=== PATIENT | male | born 1980 | race African-American/Black ===

== ENCOUNTER 2021-07-04 19:56 | Emergency (ER) | payer OTHER, SELFPAY ==
--- NOTE | ~2021-07-04 | XR_ITS ---
EXAMINATION: XR CHEST CLINICAL INFORMATION: Fall, pain on right side. COMPARISON: None TECHNIQUE: 2 views of the chest were obtained. FINDINGS: The cardiomediastinal and hilar contours are within normal limits. The lungs are clear without focal consolidation, pleural effusion or pneumothorax. No displaced rib fractures identified. XR/XR chest 2V IMPRESSION: No acute process identified. No displaced rib fractures seen.
[2021-07-04 20:30] VITALS: BP 130/58; PULSE 74; RESP 18; TEMP 37.1; O2SAT 99; BMI 23.2
[2021-07-04] MEDS: Lidocaine 4 % Patch ADH..PATCH 1 PATCH TRANSDERMA (21:39)
[2021-07-04] MEDS: Ketorolac Tromethamine 30 MG/ML VIAL 15 MG IM (21:40)
--- NOTE | 2021-07-04 21:49 | ED_ITS ---
HPI - General Adult General Chief complaint: General Medical Stated complaint: Flank pain from fall Time Seen by Provider: 07/04/21 21:19 Source: patient Mode of arrival: ambulatory History of Present Illness HPI narrative: 40-year-old male states he was roller-skating today at approximately 3:15 p.m. and fell catching himself primarily on is right arm but struck the right side of his body and felt as though his ?rib cage moved and thought he felt a pop?. Patient reports that it hurts to take a deep breath or to moved too much. Related Data Allergies Allergy/AdvReac Type Severity Reaction Status Date / Time No Known Allergies Allergy Verified 07/04/21 20:29 Review of Systems Review of Systems: Pertinent positives and negatives as stated in HPI 10 point of systems is otherwise negative. [facility] Past Medical History Source: nursing notes reviewed Social History Social History Advance Directives: No Physical Exam Vital Signs: Vital Signs: Last Vital Signs Temp 98.7 F 07/04/21 20:30 Pulse 74 07/04/21 20:30 Resp 18 07/04/21 20:30 BP 130/58 L 07/04/21 20:30 Pulse Ox 99 07/04/21 20:30 BMI result Body Mass Index 23.2 VITAL SIGNS: Reviewed. GENERAL: Well developed, well nourished, in no acute distress. HEAD: Normocephalic/atraumatic EYES: PERRLA, EOMI OROPHARYNX: no oral lesions noted, posterior pharynx clear LUNGS: Normal breath sounds. No adventitious sounds or accessory muscle use. SpO2-99, point tenderness at the right anterior chest wall at approximately ribs 11, no deformity or crepitus noted CARDIOVASCULAR: Regular rate and rhythm without noted murmurs ABDOMEN: Soft, non-tender, non-distended with bowel sounds. MUSCULOSKELETAL: No tenderness, deformities, or effusions noted on gross inspection. EXTREMITIES: No cyanosis, clubbing or edema. SKIN: Inspection of the skin reveals no rashes NEUROLOGIC: Alert and oriented x 4. Course Course Course Narrative: 40-year-old male with history and clinical presentation consistent with nondisplaced fracture or contusion and you of x-rays there are no acute findings, however patient was counseled that x-ray does miss some fra ctures but the treatment is symptomatic with combination analgesics and lidocaine patch. Patient with combination analgesics as well as lidocaine patch in otherwise discharged home in stable condition with oxygenating well on room air. Discharge Plan Discharge Clinical Impression: Chest wall pain, Contusion of chest wall Patient Disposition: Home, Self-Care Instructions: Chest Wall Pain (ED), Contusion in Adults (ED) Additional Instructions: Tylenol 1000 mg, orally, every 6 hours as needed for pain control. Do not exceed 4000 mg within 24 hours. Ibuprofen 400 male, orally with milk or food, every 6 hours as needed for pain control. You may this medication with Tylenol for increased symptom relief. Lidocaine patch, these are available [id number] and should be apply to area of maximal pain as directed on the outside packaging. Follow-up with your primary care provider in the next 1-2 days for re-evaluation further outpatient management. Return to the ER for worsening symptoms. Referrals: Florence Cohen MD [Primary Care Provider] - 2 days Stand Alone Forms: Work/School Release
== END 2021-07-04 22:25 | disposition home or self-care (01) ==
PROVIDERS: Emergency Provider Student in an Organized Health Care Education/Training Program; PCP Internal Medicine
DX: R07.89 Other chest pain (principal); S20.211A Contusion of right front wall of thorax, initial encounter; W22.09XA Striking against other stationary object, initial encounter; Y93.51 Activity, roller skating (inline) and skateboarding; Y92.9 Unspecified place or not applicable; Y99.9 Unspecified external cause status
CPT/HCPCS: 71046; 96372; 99284; J1885

== ENCOUNTER 2023-01-12 19:57 | Emergency (ER) | payer OTHER, SELFPAY ==
--- NOTE | 2023-01-12 20:10 | ED.ALLEREA ---
HPI - Allergic Reaction General Chief complaint: Allergic Reaction Stated complaint: stung on lower lip by a hornet Time Seen by Provider: 01/12/23 20:19 Source: patient Mode of arrival: ambulatory Limitations: no limitations History of Present Illness HPI narrative: 42 yo male presents to the ER with lower lip swelling after being stung my a wasp/hornet a half ago in his backyard. He reports no prior history of allergic rxns. he states that he was stung by a wasp 20 years ago without an allergic rxn. He denies difficulty swallowing, swelling of the tongue, or difficulty breathing. Reports pain as sharp, stabbing, and throbbing on the right side of the lip. MD complaint: allergic reaction and facial swelling Onset (ago): minute(s) (30 mins ago) Exposure: other (stung by wasp/hornet ) Symptoms: lip swelling Severity: moderate Treatment prior to arrival: none Previous Allergic Reaction History: none Related Data Previous Rx's Medication Instructions Recorded diphenhydramine HCl 25 mg capsule 50 mg PO TID PRN allergy symptoms 01/12/23 (Benadryl) #20 caps Allergies Allergy/AdvReac Type Severity Reaction Status Date / Time No Known Allergies Allergy Verified 01/12/23 20:17 Review of Systems Review of Systems: Yes all other systems are reviewed and are negative [facility] Social History Social History Advance Directives: No Advance Directives Information Provided: Yes Physical Exam ED Vital Signs: Vital Signs - 24 hr 01/12/23 20:13 Temperature 98.2 F Pulse Rate 65 Respiratory Rate 18 Blood Pressure 120/62 Pulse Oximetry 98 Oxygen Delivery Method Room Air BMI result Body Mass Index 24.4 Appearance: Alert. Oriented X3. No acute distress. Head: normocephalic, atraumatic. Eyes: Pupils equal, round and reactive to light. ENT: Pharynx normal. No tonsillar swelling or exudate. Left lower lip swelling and erythema. airway patent. no tongue swelling. Neck: Normal inspection. Neck supple. no neck swelling CVS: Normal heart rate and rhythm. Pulses normal. Clear to auscultation bilaterally Respiratory: No respiratory distress. Breath sounds normal. Abdomen: Soft and nontender. +BS x4 Skin: Skin warm and dry. Normal skin color. Normal skin turgor. No rashes. Extremities: No lower extremity edema. No joint swelling. Neuro/psych: Oriented X 3. No motor deficit. No sensory deficit. CN II-XII intact. Normal speech and cognition. Course Course Course Narrative: RME: 42-year-old male with no significant past medical history presenting to the ED complaining of hornet/bee sting to lower lip 20 mins [employer]. denies known allergens, SOB, sore throat, cough, or throat closing sensation +lower lip diffusely swollen, uvula midline, no resp distress IM Solumedrol, PO Benadryl and PO Pepcid ordered Full HPI, ROS and PE to be performed by primary ED provider. Reevaluation(s) Reevaluation #1: symptoms improved after meds. comfortable d/c home with continuation of benadryl until resolution Time: 21:45 Medications Administered Discontinued Medications Generic Name Dose Route Start Last Admin Trade Name Freq PRN Reason Stop Dose Admin Diphenhydramine HCl 50 mg 01/12/23 20:15 01/12/23 20:23 Diphenhydramine Hcl 25 Mg Capsule PO 01/12/23 20:16 50 mg ONCE ONE Administration Famotidine 20 mg 01/12/23 20:15 01/12/23 20:23 Famotidine 20 Mg Tablet PO 01/12/23 20:16 20 mg ONCE ONE Administration Methylprednisolone Sodium Succinate 60 mg 01/12/23 20:15 01/12/23 20:23 Methylprednisolone Sod Succ 125 Mg/2 Ml Vial IM 01/12/23 20:16 60 mg ONCE ONE Administration Medical Decision Making Medical Decision Making MDM Narrative: 42 yo male presents to the ER with lip swelling after being stung my a wasp/hornet a half ago in his backyard. No history of previous allergic rxns. Physical exam demonstrated left lower lip swelling. He was able to swallow his pills without difficulty. Prescribed famotidine, benadryl, and methyloprednisolone for inflammation and to reduce allergic rxn. Patient reports symptom improvement and decreased lip swelling. no airway involvement. reaction was localized to the sting site. stable for d/c home, return precautions were discussed. Differential Diagnosis Differential Diagnoses: The differential diagnosis associated with the presentation includes allergic reaction, angioedema, lip trauma Admission/Observation Consideration of admission/observation: Escalation of care including admission/observation considered considered observation given lip involvement Independent Historian Clinical information obtained from an independent historian. History obtained from or confirmed by: Spouse Prescription Management I considered prescription management with: Other (benadryl) Critical Care Time Critical Care Time Critical Care Time: Yes Total Critical Care Time: 35 Attestation: I have personally provided critical care time exclusive of time spent on separately billable procedures. Time includes review of records, frequent bedside evaluation of airway, cardiopulmonary status, and monitoring for potential decompensation. Intervention performed as documented. Discharge Plan Discharge Clinical Impression: Bee sting reaction Patient Disposition: Home, Self-Care Instructions: Insect Bite or Sting (ED) Additional Instructions: continue benadryl until your lip feels back to normal If you develop new or worsening symptoms call 911 or come back to the ER for further evaluation. Prescriptions: New diphenhydramine HCl [Benadryl] 25 mg capsule 50 mg PO TID PRN (Reason: allergy symptoms) Qty: 20 0RF
[2023-01-12 20:13] VITALS: BP 120/62; PULSE 65; RESP 18; TEMP 36.8; O2SAT 98; BMI 24.4
[2023-01-12] MEDS: methylPREDNISolone Sod Succ 125 MG/2 ML VIAL 60 MG IM (20:23)
[2023-01-12] MEDS: Famotidine 20 MG TABLET PO (20:23)
[2023-01-12] MEDS: diphenhydrAMINE HCL 25 MG CAPSULE 50 MG PO (20:23)
== END 2023-01-12 21:53 | disposition home or self-care (01) ==
PROVIDERS: Emergency Provider Emergency Medicine
DX: T63.441A Toxic effect of venom of bees, accidental (unintentional), initial encounter (principal); R22.0 Localized swelling, mass and lump, head; Y92.017 Garden or yard in single-family (private) house as the place of occurrence of the external cause
CPT/HCPCS: 96372; 99282; 99284; J2930

== ENCOUNTER 2025-04-25 08:32 | Outpatient (AMB) | payer OTHER, SELFPAY ==
--- NOTE | 2025-04-25 08:36 | A.OFFPC_ITS ---
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 Appointment Clerk Required: No Accompanied by: Self / Same As Patient Allergies No Known Allergies Allergy (Verified 04/25/25 08:37) Tobacco use date assessed: 04/25/25 Dental Screening Dental Screen Date: 04/25/25 Did you have a dental visit in the last 12 months?: Yes Did you have a dental problem in the last 6 months where you did not have access to dental care?: No Was dental information given to patient?: Patient has dentist HPI HPI Comments History of Present Illness Details History of Present Illness The patient is a 44-year-old male presenting for a primary care visit to establish care and discuss ADHD-related concerns. Attention-Deficit/Hyperactivity Disorder (ADHD): - The patient has been seeing a psycholo gist at [facility] for approximately one month for ADHD-related therapy. - The psychologist has requested a sign- off from a primary care physician to proceed with further evaluation of brain function. Preventative Care: - The patient is undergoing a comprehens thuan metabolic panel, complete blood count, and other screenings as part of establishing care. - No physical medical concerns were repo rted by the patient during the visit. Review of Systems - General: Denies fatigue, weight loss, or fever. - Respiratory: Denies cough, dyspnea, or wheezing. - Cardiovascular: Denies chest pain or p alpitations. - Neurological: Denies headaches, dizzin ess, or balance issues. - Psychiatric: Reports ADHD-related conc erns. 10-point ROS reviewed and negative excep t as noted in HPI Past Medical History - No significant past medical history re ported. Health Maintenance - Comprehensive metabolic panel, complet e blood count, and other screenings planned as part of establishing care. Physical Exam General: Well-appearing, in no acute distress. Vital signs: Within normal limits. HEENT: Normocephalic, atraumatic. PERRLA, EOMI. Conjunctiva clear, sclera anicteric. Oropharynx clear, mucous membranes moist. TMs intact bilaterally. Ears checked and appear normal. Neck: Supple, no lymphadenopathy, no thyromegaly, no JVD or carotid bruits. Thyroid checked and appears normal. Cardiovascular: RRR, normal S1/S2, no murmurs, rubs, or gallops. Peripheral pulses 2+ and symmetric. No edema. Respiratory: Lungs clear to auscultation bilaterally, no wheezes, rales, or rhonchi. Normal effort. Deep breath taken and normal. Abdomen: Soft, non-tender, non-distended. Normoactive bowel sounds. No hepatosplenomegaly, no masses. MSK: Full range of motion, no joint swelling or deformity. Normal gait. Skin: Warm, dry, intact. No rashes, lesions, or pallor. Noted hair loss. Neuro: Alert and oriented x3. Cranial nerves II-XII intact. Strength 5/5 throughout. Sensation intact. Reflexes 2+ symmetric. Normal coordination and gait. Psych: Appropriate mood and affect. Normal judgment and insight. Plan 1. Attention-Deficit/Hyperactivity Disor raymond (Adhd) - The patient is advised to obtain docum entation from the psychologist detailing the specific requirements for the sign-off. - Follow-up visit scheduled to review la b results and provide necessary documentation for ADHD evaluation. 2. Preventative Care - Comprehensive metabolic panel, complet e blood count, and other screenings to be conducted. - Follow-up visit planned to discuss res ults and further management. Discussion Notes During the visit, I discussed with the patient the need for a comprehensive metabolic panel and other screenings as part of establishing care. I advised the patient to obtain specific documentation from the psychologist regarding the ADHD evaluation requirements. A follow-up visit was scheduled to review lab resu lts and provide the necessary documentation for the ADHD evaluation. Patient was informed and verbally consented to the use of an ambient scribe for clinic note documentation during this visit. Patient Instructions - Obtain documentation from the psycholo gist detailing the specific requirements for the sign-off. - Return for a follow-up visit to review lab results and discuss further management. [facility] Family History (Updated 04/25/25 @ 08:41 by Linda Boston MA) Father No problems noted. Mother No problems noted. Social History Housing: House Alcohol intake: current Alcohol intake frequency: does not drink Patient Tobacco Use Status: Never used Tobacco service: No Current occupational status: employed Cognitive needs: No Hearing needs: No Vision needs: Yes (rx glasses) Questionnaire PHQ-9 Over the last 2 weeks, how often have you been bothered by any of the following problems? 1. Little interest or pleasure in doing things: not at all 2. Feeling down, depressed, or hopeless: not at all 3. Trouble falling or staying asleep, or sleeping too much: not at all 4. Feeling tired or having little energy: not at all 5. Poor appetite or overeating: not at all 6. Feeling bad about yourself - or that you are a failure or have let yourself or your family down: not at all 7. Trouble concentrating on things, such as reading the newspaper or watching television: not at all 8. Moving or speaking so slowly that other people could have noticed. Or the opposite - being so fidgety or restless that you have been moving around a lot more than usual: not at all 9. Thoughts that you would be better off or of hurting yourself in some way: not at all Total score: 0 Source: Developed by Drs. Micah Cardozo, Maryjane Valencia, Erich Hernandez and colleagues, with an educational faith from [employer]. Thrive Questionnaire Date Thrive assessed: 04/22/25 I am a: Patient What is your living situation today?: I have a steady place to live Within the past 12 months, did the food you bought not last and you didn't have the money to get more?: Never true Within the past 12 months, did you worry whether your food would run out before you got money to buy more?: Never true Do you have trouble paying for medicines?: No Do you have trouble getting transportation to medical appointments?: No Do you have trouble paying your heating and electricity bill?: No Do you have trouble taking care of your child, family member or friend?: No Do you have trouble with day-to-day activities such as bathing, preparing meals, shopping, managing finances, etc.?: No Are you currently unemployed and looking for a job?: No Are you interested in more education?: No Please select the resources that you would like help with: None Currently or been in a relationship where the following occur: No concerns reported THRIVE Score: 0 AUDIT C Alcohol Use Questionnaire (AUDIT-C) 1. How often do you have a drink containing alcohol?: Never Total Score: 0 ASHLEY-7 AMB Questionnaire ASHLEY-7 Feeling nervous, anxious, or on edge: 0 = Not at all Not being able to stop or control worryin = Not at all Worrying too much about different things: 0 = Not at all Trouble relaxin = Not at all Being so restless that it is hard to sit still: 0 = Not at all Becoming easily annoyed or irritable: 0 = Not at all Feeling afraid as if something awful might happen: 0 = Not at all Total ASHLEY-7 score (0-4 normal; 5-9 mild; 10-14 moderate; 15-21 severe): 0 Source: Developed by Drs. Micah Cardozo, Maryjane Valencia, Erich Hernandez and colleagues, with an educational faith from [employer]. Physical exam (Primary Care) Thrive Assessment: Date of Thrive Assessment Date Thrive assessed 04/22/25 04/22/25 14:39 Currently or been in a relationship where the following occur: No concerns reported Coding Level of Care Code New Pt Level 3 (66319) Diagnoses Encounter to establish care Z76.89 Encounter for screening, unspecified Z13.9 Screening for diabetes mellitus Z13.1 Screening for hypertension Z13.6 Screening for depression Z13.31 Screening for lipoid disorders Z13.220 Routine screening for STI (sexually transmitted infection) Z11.3 Screening for HIV (human immunodeficiency virus) Z11.4 Counseling, unspecified Z71.9 Assessment & Plan Assessment & Plan (1) Encounter to establish care: Code(s): Z76.89 - Persons encountering health services in other specified circumstances (2) Encounter for screening, unspecified: Code(s): Z13.9 - Encounter for screening, unspecified (3) Screening for diabetes mellitus: Code(s): Z13.1 - Encounter for screening for diabetes mellitus (4) Screening for hypertension: Code(s): Z13.6 - Encounter for screening for cardiovascular disorders (5) Screening for depression: Code(s): Z13.31 - Encounter for screening for depression (6) Screening for lipoid disorders: Code(s): Z13.220 - Encounter for screening for lipoid disorders (7) Routine screening for STI (sexually transmitted infection): Code(s): Z11.3 - Encounter for screening for infections with a predominantly sexual mode of transmission (8) Screening for HIV (human immunodeficiency virus): Code(s): Z11.4 - Encounter for screening for human immunodeficiency virus [HIV] (9) Counseling, unspecified: Code(s): Z71.9 - Counseling, unspecified Plan Orders: Orders Hemoglobin A1c Today Z13.9 - Encounter for screening, unspecified, Z76.89 - Persons encountering health services in other specified circumstances Hepatitis B Surface Antigen Today Z13.9 - Encounter for screening, unspecified, Z76.89 - Persons encountering health services in other specified circumstances Magnesium Today Z13.9 - Encounter for screening, unspecified, Z76.89 - Persons encountering health services in other specified circumstances Chlamydia Species Ab Panel Today Z13.9 - Encounter for screening, unspecified, Z76.89 - Persons encountering health services in other specified circumstances CT NG by PCR Urine Today Z13.9 - Encounter for screening, unspecified, Z76.89 - Persons encountering health services in other specified circumstances Vitamin D 1,25 dihydroxy Today Z13.9 - Encounter for screening, unspecified, Z76.89 - Persons encountering health services in other specified circumstances Complete Blood Count Auto Diff Today Z13.9 - Encounter for screening, unspecified, Z76.89 - Persons encountering health services in other specified circumstances Comprehensive Met. Panel Today Z13.9 - Encounter for screening, unspecified, Z76.89 - Persons encountering health services in other specified circumstances Hepatitis B Surface Antibody Today Z13.9 - Encounter for screening, unspecified, Z76.89 - Persons encountering health services in other specified circumstances Hepatitis C Antibody Today Z13.9 - Encounter for screening, unspecified, Z76.89 - Persons encountering health services in other specified circumstances HIV Ab/Ag Today Z13.9 - Encounter for screening, unspecified, Z76.89 - Persons encountering health services in other specified circumstances Lipid Panel Today Z13.9 - Encounter for screening, unspecified, Z76.89 - Persons encountering health services in other specified circumstances Syphilis Screen Today Z13.9 - Encounter for screening, unspecified, Z76.89 - Persons encountering health services in other specified circumstances UA CC w/rflx Micro + Cult Today Z13.9 - Encounter for screening, unspecified, Z76.89 - Persons encountering health services in other specified circumstances Vitamin B12 and Folate Today Z13.9 - Encounter for screening, unspecified, Z76.89 - Persons encountering health services in other specified circumstances
[2025-04-25 08:42] VITALS: BP 118/62; PULSE 62; RESP 16; TEMP 36.6; O2SAT 100; BMI 24.1
--- OUTSIDE RECORDS SUMMARY | 2025-04-25 08:49 | XMS_ITS ---
Author Name [facility] Organization Unknown Care Team Organization Name Specialty Phone Email Start Date End [facility] te [facility] [employer] ([facility]) 12/10/2024
--- OUTSIDE RECORDS SUMMARY | 2025-04-25 08:49 | XMS_ITS | Clinical Summary ---
Author Organization [facility] Address [address] [place] [address] Care Team Providers Care Contact Officer Name Role Phone Kailyn Nowak MD Primary Care Provider [phone] Medications Cyclobenzaprine HCl (FLEXERIL) 10 MG tablet TAKE 1/2 TO 1 TABLET 3 TIMES DAILY NEEDED. 15 0 07/06/2019 Active Ibuprofen (ADVIL,MOTRIN) 600 MG tablet TAKE 1 TABLET 3 TIMES DAILY WITH FOOD NEEDED. 42 0 07/06/2019 Active Active Problems Problem Noted Date Diagnosed Date Trapezius muscle spasm 07/06/2019 Overview (08/28/2023): Impression - [id number]: Pt counselled at length on condition. Rec freq warm compresses, massage and gentle stretching. Begin ibuprofen 600mg tid with food and cyclobenzaprine up to tid (as shadia with sedation). F/u with any worsening if not improved in 1 week or if not resolved in 2 weeks. I discussed that he may benefit for PT if not imrproving soon given his degree of discomfort. Advised he may need someone to drive him home as he is having difficulty turning his neck. Social History Tobacco Use Types Packs/Day Years Used Date Smoking Tobacco: Never Assessed Sex and Gender Information Value Date Recorded Sex Assigned at Not on file Legal Sex Male 6:18 PM EDT Gender Identity Not on file Sexual Orientation Not on file Last Filed Vital Signs Vital Sign Reading Time Taken Comments Blood Pressure 115/70 07/06/2019 9:32 AM EST Pulse 61 07/06/2019 9:32 AM EST Temperature 36.6 C (97.9 F) 07/06/2019 9:32 AM EST Respiratory Rate 61 07/06/2019 9:32 AM EST Oxygen Saturation 100% 07/06/2019 9:32 AM EST Inhaled Oxygen Concentration - - Weight 72.6 kg (159 lb 15.8 oz) 07/06/2019 9:32 AM EST Height 177.8 cm (5' 10 ) 07/06/2019 9:32 AM EST Body Mass Index 22.96 07/06/2019 9:32 AM EST Plan of Treatment Health Maintenance Due Date Last Done Comments Hepatitis C Screening 1982 DTaP/Tdap/Td (1 - Tdap) 2000 Hep B (1 of 3 - 19+ 3-dose series) 2001 COVID-19 Vaccine ( - 2023-2 5 season) 2025 Influenza (#1) 2025 Zoster (Shingrix) (1 of 2) 2032 HPV Vaccine (No Doses Required) Completed Hep A Aged Out No longer eligi ble based on patient's age to complete this topic Hib Aged Out No longer eligi ble based on patient's age to complete this topic Meningococcal ACWY Aged Out No longer eligible based on patient's age to complete this topic Pneumococcal Aged Out No longer eligi ble based on patient's age to complete this topic Care Teams Contact Officer Relationship Specialty Start Date End Date Kailyn Nowak MD [address] [place] [address] PCP - General 02/28/23
== END 2025-04-25 09:01 | disposition home or self-care (01) ==
PROVIDERS: Family Provider Student in an Organized Health Care Education/Training Program; Visit Provider Student in an Organized Health Care Education/Training Program
DX: F90.9 Attention-deficit hyperactivity disorder, unspecified type (principal)

== ENCOUNTER 2025-04-25 08:32 | Outpatient (REF) | payer BC, SELFPAY ==
[2025-04-25 13:34] LABS: MANUAL DIFF FLAG NO
[2025-04-25 13:39] LABS: Hematocrit 41.6 % (42.0-52.0); Hemoglobin 13.9 g/dl (14.0-18.0); Imm Gran Abs Auto 0.01 X10*3/uL (0.00-0.03); Imm Gran Pct Auto 0.2 % (0.0-0.4); Lymphocytes Absolute Auto 1.5 X10*3/uL (1.2-4.9); Mean Corpuscular HGB Conc 33.4 g/dl (31.0-36.0); Mean Corpuscular Hemoglobin 27.9 pg (27.0-33.0); Mean Corpuscular Volume 83.5 fL (80.0-98.0); NRBC Abs Auto 0.000 X10*3/uL (0.0-0.012); NRBC Pct Auto 0.0 /100WBC (0.0-0.2); Platelet Count 263 X10*3/uL (160-400); Red Blood Count 4.98 X10*6/uL (4.60-5.80); White Blood Count 4.1 X10*3/uL (4.8-10.8)
[2025-04-25 13:53] LABS: Alanine Aminotransferase 23 U/L (0-40); Albumin Level 4.6 g/dL (3.5-5.0); Alkaline Phosphatase 96 U/L (39-117); Anion Gap 9 (12-20); Aspartate Amino Transferase 39 U/L (5-37); Blood Urea Nitrogen 11 mg/dL (9-16); Calcium 9.5 mg/dL (8.4-10.2); Carbon Dioxide 27 mmol/L (22-29); Chloride 108 mmol/L (96-108); Cholesterol 207 mg/dL (<200); Estimated Glomerular Filt Rate > 60; HDL Cholesterol 62 mg/dL (>40); Magnesium 2.2 mg/dL (1.6-2.6); Potassium 3.9 mmol/L (3.3-5.1); Sodium 140 mmol/L (135-145); Total Protein 7.7 g/dL (6.5-8.0); Triglycerides 45 mg/dL (<150)
[2025-04-25 14:22] LABS: Folate 6.8 ng/mL (> or = 4.0); Vitamin B12 387 pg/mL (200-900)
[2025-04-25 14:37] LABS: Appearance Urine Clear; Glucose Urine UA Negative (Negative); PH 6.0 (5.0-9.0); Specific Gravity - Urine 1.025 (1.005-1.025); UMIC TRIGGER UACC YES
[2025-04-25 15:58] LABS: CT PCR Urine NOT DETECTED (Not Detect.); NG PCR Urine NOT DETECTED (Not Detect.)
[2025-04-26 05:27] LABS: HBS Num1 21.52 mIU/mL (0-7.99); HBsAGNum1 0.49 S/CO (0.00-0.99); HIV Num 1 0.05 S/CO (0.00-0.99); Hepatitis B Surface Antigen Negative (Negative); ~HepC Num1 0.09 S/CO (0.00-0.79); ~Hepatitis B Surface Antibody REACTIVE (Nonreactive); ~Hepatitis C Antibody Nonreactive (Nonreactive)
[2025-04-26 05:39] LABS: Syphilis Screen Nonreactive (Nonreactive)
[2025-04-30 17:32] LABS: VITAMIN D (1,25 OH) D3 55 pg/mL; Vit D (1,25-Dihydroxy) Total 55 pg/mL (18-72); Vitamin D (1,25 OH) D2 <8 pg/mL
[2025-05-01 11:19] LABS: Chlamydia Pneumoniae Interp. Past Infection; Chlamydia Trachomatis IgA <1:16 titer (<1:16)
== END 2025-04-25 08:33 | disposition home or self-care (01) ==
LOC: HO.HKASLDS 08:32
PROVIDERS: Visit Provider Student in an Organized Health Care Education/Training Program
DX: Z76.89 Persons encountering health services in other specified circumstances (principal); Z13.9 Encounter for screening, unspecified; Z13.1 Encounter for screening for diabetes mellitus; Z13.6 Encounter for screening for cardiovascular disorders; Z13.31 Encounter for screening for depression; Z13.220 Encounter for screening for lipoid disorders; Z11.4 Encounter for screening for human immunodeficiency virus [HIV]; Z71.9 Counseling, unspecified; Z20.2 Contact with and (suspected) exposure to infections with a predominantly sexual mode of transmission
CPT/HCPCS: 80053; 80061; 81001; 81003; 82607; 82652; 82746; 83036; 83735; 85025; 86631; 86632; 86706; 86780; 86803; 87340; 87389; 87491; 87591; 96127

== ENCOUNTER 2025-05-08 08:40 | Outpatient (AMB) | payer OTHER, SELFPAY ==
[2025-05-08 08:44] VITALS: BP 118/54; PULSE 63; RESP 16; TEMP 36.5; O2SAT 100; BMI 23.7
--- NOTE | 2025-05-08 08:44 | MHC.PC.OV ---
Vital Signs 05/08/25 08:44 Height 5 ft 10.08 in Weight 165 lb 4 oz BMI 23.7 BP 118/54 L Blood Pressure Location Rt brachial Position Sitting Respiration 16 Pulse 63 Pulse Source Pulse Oximeter Temp 97.7 F Temp Source Oral Pulse Oximetry (%) 100 Oxygen Delivery Method Room Air Intake Visit Reasons: 2 wk f/u Educational Programming Director Required: No Accompanied by: Self / Same As Patient Allergies No Known Allergies Allergy (Verified 05/08/25 08:45) Tobacco use date assessed: 05/08/25 Dental Screening Dental Screen Date: 05/08/25 Did you have a dental visit in the last 12 months?: Yes Did you have a dental problem in the last 6 months where you did not have access to dental care?: No Was dental information given to patient?: Patient has dentist HPI HPI Comments History of Present Illness Details Consent The patient consented to undergo an MRI of the brain to investigate potential structural causes for memory loss and recall issues. The patient was informed about the purpose of the MRI, which is to identify any structural abnormalities such as tumors or deposits in the brain. The patient agreed to the plan and understood the need for further evaluation based on the MRI results. Patient was informed and verbally consented to the use of an ambient scribe for clinic note documentation during this visit. History of Present Illness The patient is a 44-year-old male presenting with ADHD-related concerns and memory issues. 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 - He has been under therapy at [facility] for ADHD-related therapy for approximately one month. - The patient has previously tried ADHD medications, which were effective for the first two to three weeks but then lost efficacy. Hyperlipidemia: - The patient has elevated cholesterol levels, with total cholesterol at 207 mg/dL and LDL cholesterol at 136 mg/dL. - Lifestyle changes were discussed as a means to manage these levels without medication at this time. Amnesia: - The patient reports memory loss and difficulty recalling information, which affects his work performance. - The patient has been advised to take breaks during tasks to help with recall and focus, which has shown some improvement. Elevated liver enzymes: - The patient has a mild elevation in liver enzymes, with AST slightly above the normal range. - This is attributed to the elevated cholesterol levels, and lifestyle modifications are recommended to address this. Review of Systems - Neurological: Reports memory loss and difficulty with recall. Denies other neurological symptoms. - Cardiovascular: Denies chest pain or palpitations. - Gastrointestinal: Denies abdominal pain or changes in bowel habits. 10-point ROS reviewed and negative except as noted in HPI Past Medical History - Attention Deficit Hyperactivity Disorder (ADHD) diagnosed years ago. - Family history of prostate cancer (father). Health Maintenance - Comprehensive metabolic panel and complete blood count conducted as part of preventative care. - Referral to utility sales representative for hyperlipidemia management through lifestyle changes. Physical Exam General: Well-appearing, in no acute distress. Vital signs: Within normal limits. HEENT: Normocephalic, atraumatic. PERRLA, EOMI. Conjunctiva clear, sclera anicteric. Oropharynx clear, mucous membranes moist. TMs intact bilaterally. Neck: Supple, no lymphadenopathy, no thyromegaly, no JVD or carotid bruits. Cardiovascular: RRR, normal S1/S2, no murmurs, rubs, or gallops. Peripheral pulses 2+ and symmetric. No edema. Respiratory: Lungs clear to auscultation bilaterally, no wheezes, rales, or rhonchi. Normal effort. Abdomen: Soft, non-tender, non-distended. Normoactive bowel sounds. No hepatosplenomegaly, no masses. MSK: Full range of motion, no joint swelling or deformity. Normal gait. Skin: Warm, dry, intact. No rashes, lesions, or pallor. Neuro: Alert and oriented x3. Cranial nerves II-XII intact. Strength 5/5 throughout. Sensation intact. Reflexes 2+ symmetric. Normal coordination and gait. Psych: Appropriate mood and affect. Normal judgment and insight. Plan 1. Attention Deficit Hyperactivity Disorder (Adhd) - Plan to conduct an MRI of the brain to rule out structural causes for memory issues. - Consideration of referral to psychiatry for medication management and further evaluation. 2. Hyperlipidemia - Referral to a utility sales representative for dietary modifications to manage cholesterol levels. - Plan to repeat lipid panel in six months to assess the effectiveness of lifestyle changes. 3. Amnesia - MRI of the brain ordered to investigate potential structural causes. - Consideration of neuropsychological evaluation for further assessment. 4. Elevated Liver Enzymes - Monitor liver enzyme levels and manage through lifestyle changes aimed at reducing cholesterol. Discussion Notes During the visit, we discussed the patient's ADHD and associated memory issues. I explained the need for an MRI to rule out structural brain issues and the potential for a psychiatry referral for medication management. We also reviewed the patient's lab results, noting mild hyperlipidemia and elevated liver enzymes, and discussed lifestyle changes to address these. The patient was informed about the referrals to a utility sales representative and behavioral health services. Patient Instructions - Schedule and complete the MRI of the brain as ordered. - Follow up with the utility sales representative for dietary advice to manage cholesterol levels. - Expect contact from behavioral health services for further evaluation and support. - Monitor for any new symptoms and report them during follow-up visits. Medical Decision Making The patient presents with ADHD and memory issues, prompting the decision to order an MRI to rule out structural causes. Given the history of ADHD, a psychiatry referral is considered for medication management. The patient's hyperlipidemia and elevated liver enzymes are addressed through lifestyle modifications, with a plan to monitor these levels. The decision-making process involves coordinating care with behavioral health and dietary services to provide comprehensive management. Total time spent caring for the patient today was 30 minutes. This includes time spent before the visit reviewing the chart, time spent documenting, and time spent reviewing laboratory results, diagnostic imaging, medications, performing a medically necessary evaluation, counseling on diagnoses, care coordination, ordering appropriate tests. [facility] Medical History (Updated 05/08/25 @ 09:17 by Peter Ramírez MD) Elevated liver enzymes Hyperlipidemia ADHD Family History Father No problems noted. Mother No problems noted. Social History Housing: House Alcohol intake: current Alcohol intake frequency: does not drink Patient Tobacco Use Status: Never used Tobacco service: No Current occupational status: employed Cognitive needs: No Hearing needs: No Vision needs: Yes (rx glasses) Questionnaire PHQ-9 Over the last 2 weeks, how often have you been bothered by any of the following problems? 1. Little interest or pleasure in doing things: not at all 2. Feeling down, depressed, or hopeless: not at all 3. Trouble falling or staying asleep, or sleeping too much: not at all 4. Feeling tired or having little energy: not at all 5. Poor appetite or overeating: not at all 6. Feeling bad about yourself - or that you are a failure or have let yourself or your family down: not at all 7. Trouble concentrating on things, such as reading the newspaper or watching television: not at all 8. Moving or speaking so slowly that other people could have noticed. Or the opposite - being so fidgety or restless that you have been moving around a lot more than usual: not at all 9. Thoughts that you would be better off or of hurting yourself in some way: not at all Total score: 0 Source: Developed by Drs. Micah Cardozo, Maryjane Valencia, Erich Hernandez and colleagues, with an educational faith from [employer]. Thrive Questionnaire Date Thrive assessed: 04/22/25 I am a: Patient What is your living situation today?: I have a steady place to live Within the past 12 months, did the food you bought not last and you didn't have the money to get more?: Never true Within the past 12 months, did you worry whether your food would run out before you got money to buy more?: Never true Do you have trouble paying for medicines?: No Do you have trouble getting transportation to medical appointments?: No Do you have trouble paying your heating and electricity bill?: No Do you have trouble taking care of your child, family member or friend?: No Do you have trouble with day-to-day activities such as bathing, preparing meals, shopping, managing finances, etc.?: No Are you currently unemployed and looking for a job?: No Are you interested in more education?: No Please select the resources that you would like help with: None Currently or been in a relationship where the following occur: No concerns reported THRIVE Score: 0 AUDIT C Alcohol Use Questionnaire (AUDIT-C) 1. How often do you have a drink containing alcohol?: Never Total Score: 0 ASHLEY-7 AMB Questionnaire ASHLEY-7 Date ASHLEY - 7 assessed: 05/08/25 Feeling nervous, anxious, or on edge: 0 = Not at all Not being able to stop or control worryin = Not at all Worrying too much about different things: 0 = Not at all Trouble relaxin = Not at all Being so restless that it is hard to sit still: 0 = Not at all Becoming easily annoyed or irritable: 0 = Not at all Feeling afraid as if something awful might happen: 0 = Not at all Total ASHLEY-7 score (0-4 normal; 5-9 mild; 10-14 moderate; 15-21 severe): 0 Source: Developed by Drs. Micah Cardozo, Maryjane Valencia, Erich Hernandez and colleagues, with an educational faith from [employer]. Physical exam (Primary Care) Vital Signs: Last Vital Signs Temp 97.7 F 05/08/25 08:44 Pulse 63 05/08/25 08:44 Resp 16 05/08/25 08:44 BP 118/54 L 05/08/25 08:44 Pulse Ox 100 05/08/25 08:44 Oxygen Delivery Method Room Air 05/08/25 08:44 BMI result Body Mass Index 23.7 Tobacco/Smoking Status: Tobacco use Status Tobacco use date assessed 05/08/25 05/08/25 08:53 Patient Tobacco Use Status Never used Tobacco 05/08/25 08:53 PHQ-9: PHQ-9 Score PHQ-9: Total score 0 05/08/25 09:06 Thrive Assessment: Date of Thrive Assessment Date Thrive assessed 04/22/25 05/08/25 08:53 Currently or been in a relationship where the following occur: No concerns reported Coding Level of Care Code Est Pt Level 4 (63590) Diagnoses Memory loss R41.3 Delayed recall of memories R41.3 Hyperlipidemia E78.5 Elevated liver enzymes R74.8 ADHD F90.9 Assessment & Plan Assessment & Plan (1) Memory loss: Code(s): R41.3 - Other amnesia (2) Delayed recall of memories: Code(s): R41.3 - Other amnesia (3) Hyperlipidemia: Code(s): E78.5 - Hyperlipidemia, unspecified Category: Medical (4) Elevated liver enzymes: Code(s): R74.8 - Abnormal levels of other serum enzymes Category: Medical (5) ADHD: Code(s): F90.9 - Attention-deficit hyperactivity disorder, unspecified type Category: Medical Plan Orders: Orders MR head/brain wo con Today R41.3 - Other amnesia Referrals Psychiatry Referral F90.9 - Attention-deficit hyperactivity disorder, unspecified type, R41.3 - Other amnesia Behavioral Health Referral F90.9 - Attention-deficit hyperactivity disorder, unspecified type, R41.3 - Other amnesia Nurse Navigator Referral E78.5 - Hyperlipidemia, unspecified, R74.8 - Abnormal levels of other serum enzymes
--- OUTSIDE RECORDS SUMMARY | 2025-05-08 09:11 | XMS_ITS | Clinical Summary ---
Author Organization [facility] Address [address] [place] [address] Care Team Providers Care Ball Machine Operator Name Role Phone Kailyn Nowak MD Primary Care Provider [phone] Medications Cyclobenzaprine HCl (FLEXERIL) 10 MG tablet TAKE 1/2 TO 1 TABLET 3 TIMES DAILY NEEDED. 15 0 07/06/2019 Active Ibuprofen (ADVIL,MOTRIN) 600 MG tablet TAKE 1 TABLET 3 TIMES DAILY WITH FOOD NEEDED. 42 0 07/06/2019 Active Active Problems Problem Noted Date Diagnosed Date Trapezius muscle spasm 07/06/2019 Overview (08/28/2023): Impression - [id number]: Pt counselled at length on condition. Rec [...] 3-dose series) 2001 COVID-19 Vaccine ( - 2024-2 6 season) 2025 Influenza (#1) 2025 Zoster (Shingrix) [...] age to complete this topic Care Teams Ball Machine Operator Relationship Specialty Start Date End Date Kailyn Nowak MD [address] [place] [address] PCP - General 02/28/23
== END 2025-05-08 09:26 | disposition home or self-care (01) ==
LOC: HO.HMCFMS 08:41
PROVIDERS: PCP Student in an Organized Health Care Education/Training Program; Visit Provider Student in an Organized Health Care Education/Training Program
DX: R41.3 Other amnesia (principal); E78.5 Hyperlipidemia, unspecified; R74.8 Abnormal levels of other serum enzymes; F90.9 Attention-deficit hyperactivity disorder, unspecified type

== ENCOUNTER → 2025-06-16 19:55 | Outpatient (BNV) | payer BC, SELFPAY | PROVIDERS: PCP Student in an Organized Health Care Education/Training Program; Visit Provider Radiology Diagnostic Radiology | DX: R41.3 Other amnesia (principal) | CPT/HCPCS: 70551 ==

== ENCOUNTER 2025-06-16 19:56 | Outpatient (REF) | payer BC, SELFPAY ==
--- NOTE | ~2025-06-16 | MR_ITS ---
EXAMINATION: MR BRAIN WITHOUT CONTRAST CLINICAL INFORMATION: 44-year-old male, memory issues. Other amnesia. COMPARISON: None available. TECHNIQUE: MRI of the brain was obtained using routine sequences without contrast. Examination performed on a 1.5 Laura Siemens high-field unit. FINDINGS: There is no diffusion restriction. There is no intracranial hemorrhage, acute infarction, mass effect, or edema. Ventricles, sulci, and cisterns are normal in size and configuration for patient age. No shift of midline. No abnormal hemosiderin deposition is identified. There are a few scattered punctate tiny foci of white matter T2 hyperintensity in the periventricular, subcortical, and hemispheric deep white matter. These foci are nonspecific but statistically relate to small vessel ischemic changes. Midline structures appear normally formed. The pituitary gland appears normal. Posterior fossa structures appear normal. Cerebellar tonsils are appropriately located. Major flow voids are preserved within the skull base. The globes and orbital contents demonstrate no abnormalities. Paranasal sinuses are clear bilaterally. The mastoids and tympanic cavities are normally aerated. Extracranial soft tissues demonstrate no abnormalities. No suspicious bone marrow changes are evident. Atlantoaxial joint is normal. MR/MR head/brain wo con IMPRESSION: 1. No evidence of intracranial hemorrhage, acute infarction, mass effect, or edema. 2. A few tiny scattered foci of T2 signal hyperintensity in the hemispheric white matter, entirely nonspecific but most likely on the basis of small vessel ischemic changes. Electronically signed by: Luis Fernando Flaherty MD 06/17/2025 12:02 PM [facility]
--- OUTSIDE RECORDS SUMMARY | 2025-06-16 20:05 | XMS_ITS | Clinical Summary ---
Author Organization [facility] Address [address] [place] [address] Care Team Providers Care Printed Circuit Board Assembly Repairer Name Role Phone Kailyn Nowak MD Primary Care Provider [phone] Medications Cyclobenzaprine HCl (FLEXERIL) 10 MG tablet TAKE 1/2 TO 1 TABLET 3 TIMES DAILY NEEDED. 15 0 07/06/2019 Active Ibuprofen (ADVIL,MOTRIN) 600 MG tablet TAKE 1 TABLET 3 TIMES DAILY WITH FOOD NEEDED. 42 0 07/06/2019 Active Active Problems Problem Noted Date Diagnosed Date Trapezius muscle spasm 07/06/2019 Overview (08/28/2023): Impression - [id number]: Pt counselled at length on condition. Rec [...] age to complete this topic Care Teams Printed Circuit Board Assembly Repairer Relationship Specialty Start Date End Date Kailyn Nowak MD [address] [place] [address] PCP - General 02/28/23
== END 2025-06-16 19:57 | disposition home or self-care (01) ==
LOC: HO.MRI 19:56
PROVIDERS: PCP Student in an Organized Health Care Education/Training Program; Visit Provider Student in an Organized Health Care Education/Training Program
DX: R41.3 Other amnesia (principal)
CPT/HCPCS: 70551

== ENCOUNTER 2025-06-28 08:43 | Outpatient (AMB) | payer BC, SELFPAY ==
--- NOTE | 2025-06-28 08:53 | A.OFFPC_ITS ---
Vital Signs 06/28/25 08:57 Height 5 ft 10.08 in Weight 169 lb 2 oz BMI 24.2 BP 112/76 Blood Pressure Location Rt brachial Position Sitting Respiration 18 Pulse 68 Pulse Source Pulse Oximeter Temp 97.5 F Temp Source Oral Pulse Oximetry (%) 99 Oxygen Delivery Method Room Air Intake Visit Reasons: Brain MRI Results Intake Note: Patient present to discuss brain mri results. Time Recorder Required: No Accompanied by: Self / Same As Patient Allergies No Known Allergies Allergy (Verified 06/28/25 08:56) Tobacco use date assessed: 05/08/25 Dental Screening Dental Screen Date: 05/08/25 HPI HPI Comments History of Present Illness Details History of Present Illness The patient is a 44 year old male presenting for a follow-up visit to discuss a referral for a behavioral health evaluation and to review recent MRI results. Attention-Deficit Hyperactivity Disorder: The patient has a prior diagnosis of Attention-Deficit Hyperactivity Disorder (ADHD) and was seeking a psychiatric evaluation for management. He was awaiting a referral for behavioral health but had not been contacted. Small Vessel Ischemic Changes: The patient reports issues with forgetfulness. A recent brain MRI showed no evidence of intracranial hemorrhage, acute infarction, mass effect, or edema. The imaging did reveal a few tiny scattered foci of T2 signal hyperintensity in the hemispheric white matter, which are nonspecific but most likely represent small vessel ischemic changes. Diagnostic Results: - Brain MRI: Results showed no evidence of intracranial hemorrhage, acute infarction, mass effect or edema. - A few tiny scattered foci of T2 signal hyperintensity in the hemispheric white matter were noted, which were entirely nonspecific but most likely on the basis of small vessel ischemic changes. 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 [facility] Medical History (Updated 06/28/25 @ 09:45 by Peter Ramírez MD) Small vessel disease Elevated liver enzymes Hyperlipidemia ADHD Family History Father No problems noted. Mother No problems noted. Social History (Updated 06/28/25 @ 08:57 by Eric Meeks CMA) Housing: House Alcohol intake: current Alcohol intake frequency: does not drink Patient Tobacco Use Status: Never used Tobacco e-Cigarette/Vaping Use: Never Used Use of substances other than those prescribed or required for medical reasons: No service: No Current occupational status: employed Cognitive needs: No Hearing needs: No Vision needs: Yes (rx glasses) Questionnaire PHQ-9 Over the last 2 weeks, how often have you been bothered by any of the following problems? 1. Little interest or pleasure in doing things: not at all 2. Feeling down, depressed, or hopeless: not at all 3. Trouble falling or staying asleep, or sleeping too much: not at all 4. Feeling tired or having little energy: not at all 5. Poor appetite or overeating: not at all 6. Feeling bad about yourself - or that you are a failure or have let yourself or your family down: not at all 7. Trouble concentrating on things, such as reading the newspaper or watching television: not at all 8. Moving or speaking so slowly that other people could have noticed. Or the opposite - being so fidgety or restless that you have been moving around a lot more than usual: not at all 9. Thoughts that you would be better off or of hurting yourself in some way: not at all Total score: 0 Depression Screening Interpretation: Negative Depression Screening Done: Yes 60965 - PHQ-9 Billing: Yes Source: Developed by Drs. Micah Cardozo, Maryjane Valencia, Erich Hernandez and colleagues, with an educational faith from [employer]. Thrive Questionnaire Date Thrive assessed: 04/22/25 I am a: Patient What is your living situation today?: I have a steady place to live Within the past 12 months, did the food you bought not last and you didn't have the money to get more?: Never true Within the past 12 months, did you worry whether your food would run out before you got money to buy more?: Never true Do you have trouble paying for medicines?: No Do you have trouble getting transportation to medical appointments?: No Do you have trouble paying your heating and electricity bill?: No Do you have trouble taking care of your child, family member or friend?: No Do you have trouble with day-to-day activities such as bathing, preparing meals, shopping, managing finances, etc.?: No Are you currently unemployed and looking for a job?: No Are you interested in more education?: No Please select the resources that you would like help with: None Currently or been in a relationship where the following occur: No concerns reported THRIVE Score: 0 AUDIT C Alcohol Use Questionnaire (AUDIT-C) 1. How often do you have a drink containing alcohol?: Never Total Score: 0 ASHLEY-7 AMB Questionnaire ASHLEY-7 Date ASHLEY - 7 assessed: 05/08/25 Feeling nervous, anxious, or on edge: 0 = Not at all Not being able to stop or control worryin = Not at all Worrying too much about different things: 0 = Not at all Trouble relaxin = Not at all Being so restless that it is hard to sit still: 0 = Not at all Becoming easily annoyed or irritable: 0 = Not at all Feeling afraid as if something awful might happen: 0 = Not at all Total ASHLEY-7 score (0-4 normal; 5-9 mild; 10-14 moderate; 15-21 severe): 0 Source: Developed by Drs. Micah Cardozo, Maryjane Valencia, Erich Hernandez and colleagues, with an educational faith from [employer]. ASHLEY-7 Assessment Billing ASHLEY-7 Assessment Tool: ASHLEY-7 Assessment 83180 Review of Systems Narrative Review of Systems - Constitutional: Reports feeling pretty good. - Neurological: Reports forgetfulness. 10-point ROS reviewed and negative except as noted in HPI Physical exam (Primary Care) Vital Signs: Last Vital Signs Temp 97.5 F 06/28/25 08:57 Pulse 68 06/28/25 08:57 Resp 18 06/28/25 08:57 BP 112/76 06/28/25 08:57 Pulse Ox 99 06/28/25 08:57 Oxygen Delivery Method Room Air 06/28/25 08:57 BMI result Body Mass Index 24.2 Tobacco/Smoking Status: Tobacco use Status Tobacco use date assessed 05/08/25 06/28/25 09:01 Patient Tobacco Use Status Never used Tobacco 06/28/25 09:01 e-Cigarette/Vaping Use Never Used 06/28/25 09:01 PHQ-9: PHQ-9 Score PHQ-9: Total score 0 06/28/25 09:01 Depression Screening Interpretation: Negative Thrive Assessment: Date of Thrive Assessment Date Thrive assessed 04/22/25 06/28/25 09:01 Currently or been in a relationship where the following occur: No concerns reported Narrative Physical Exam General: Well-appearing, in no acute distress. Vital signs: Within normal limits. HEENT: Normocephalic, atraumatic. PERRLA, EOMI. Conjunctiva clear, sclera anicteric. Oropharynx clear, mucous membranes moist. TMs intact bilaterally. Neck: Supple, no lymphadenopathy, no thyromegaly, no JVD or carotid bruits. Cardiovascular: RRR, normal S1/S2, no murmurs, rubs, or gallops. Peripheral pulses 2+ and symmetric. No edema. Respiratory: Lungs clear to auscultation bilaterally, no wheezes, rales, or rhonchi. Normal effort. Abdomen: Soft, non-tender, non-distended. Normoactive bowel sounds. No hepatosplenomegaly, no masses. MSK: Full range of motion, no joint swelling or deformity. Normal gait. Skin: Warm, dry, intact. No rashes, lesions, or pallor. Neuro: Alert and oriented x3. Cranial nerves II-XII intact. Strength 5/5 throughout. Sensation intact. Reflexes 2+ symmetric. Normal coordination and gait. Psych: Appropriate mood and affect. Normal judgment and insight. Patient has a history of ADHD and is awaiting further evaluation and management. Coding Level of Care Code Est Pt Level 3 (09731) Diagnoses ADHD F90.9 Small vessel disease I73.9 Additional Codes ASHLEY-7 Assessment Billing - ASHLEY-7 Assessment Tool: ASHLEY-7 Assessment 44031 ([id number]) PHQ-9 - 10035 - PHQ-9 Billing: Yes ([id number]) Assessment & Plan Assessment & Plan (1) ADHD: Code(s): F90.9 - Attention-deficit hyperactivity disorder, unspecified type Category: Medical (2) Small vessel disease: Code(s): I73.9 - Peripheral vascular disease, unspecified Category: Medical Plan Consent Patient was informed and verbally consented to the use of an ambient scribe for clinic note documentation during this visit. Plan 1. Attention-Deficit Hyperactivity Disorder - The patient was provided with the contact information for [facility] and was instructed to call them to schedule an evaluation. - This evaluation will include a psychiatric assessment and ADHD testing, which can be done via Zoom. - The patient is to follow up after the evaluation to discuss the plan established by [facility]. - He was also instructed to have the assessment notes sent to his primary care provider for care coordination. 2. Small Vessel Ischemic Changes - The patient's brain MRI results were reviewed, showing nonspecific small vessel ischemic changes, which may contribute to his forgetfulness. - A neurology referral was discussed but was deferred until after the psychiatric evaluation is completed. - A referral to neurology will be initiated if recommended by the behavioral health team. Discussion Notes I reviewed the patient's brain MRI results with him, explaining that while there was no evidence of an acute process, there were some nonspecific small vessel ischemic changes that could potentially be related to his symptom of forgetfulness. We discussed the need for a psychiatric evaluation for his pre viously diagnosed ADHD, and since my office's referral had not resulted in contact, I provided him with the information for [facility] for an assessment. I explained that this group can perform ADHD testing and establish a management plan. We agreed to hold off on a neurology referral at this time, pending the outcome of the psychiatric evaluation. I clarified that he should follow up with me after his evaluation to review their findings and plan, and at that time we can proceed with a neurology consult if recommended. I also explained my preference for in-person or video visits over phone calls or messaging to ensure clear communication and to address any questions he may have, thereby avoiding miscommunication. Patient Instructions - Call [facility] ([facility]) at [phone] to schedule an appointment for a psychiatric and ADHD evaluation. - Inform them that Dr. Ramírez referred you. - Your evaluation with [facility] may be conducted over Zoom. - After your evaluation is complete and you have a plan from [facility], schedule a follow-up appointment with me to discuss it. - Request that [facility] sends a copy of their notes to me, your primary care doctor, to keep me informed of your care. Medical Decision Making The patient is a 44-year-old male with a history of ADHD who presents for follow-up regarding management of his condition and review of a recent brain MRI obtained for forgetfulness. The MRI results were reassuring, showing no acute pathology but did reveal nonspecific small vessel ischemic changes, which could be a factor in his cognitive symptoms. Given his pre-existing diagnosis of ADHD, the most logical next step is a formal psychiatric evaluation to confirm the diagnosis and establish a treatment plan. I provided a direct referral to [facility], a group that can provide this specialized testing and management, including via telehealth. A neurology referral for the MRI findings was considered, but it is more clinically appropriate to defer this until after the psychiatric assessment. This staged approach prevents premature consultations and allows the behavioral health team to determine if a neurological workup is truly indicated. The plan is for the patient to complete his evaluation with [facility] and then follow up with me to ensure care coordination and to implement any further recommendations. Total Time Statement 20 min Total time spent caring for the patient today includes pre-visit chart review, documentation, review of laboratory and diagnostic imaging results, medication reconciliation, medically necessary evaluation, counseling on diagnoses, care coordination, ordering appropriate tests and medications, review of tests performed by other providers, reporting test results to the patient, and communication with other healthcare providers.
[2025-06-28 08:57] VITALS: BP 112/76; PULSE 68; RESP 18; TEMP 36.4; O2SAT 99; BMI 24.2
== END 2025-06-28 09:18 | disposition home or self-care (01) ==
LOC: HO.HMCFMS 08:44
PROVIDERS: PCP Student in an Organized Health Care Education/Training Program; Visit Provider Student in an Organized Health Care Education/Training Program
DX: F90.9 Attention-deficit hyperactivity disorder, unspecified type (principal); I73.9 Peripheral vascular disease, unspecified

== ENCOUNTER → 2025-06-28 08:43 | Outpatient (BNVA) | payer BC, SELFPAY | PROVIDERS: PCP Student in an Organized Health Care Education/Training Program; Visit Provider Student in an Organized Health Care Education/Training Program | DX: Z13.31 Encounter for screening for depression (principal) | CPT/HCPCS: 96127 ==